=== PATIENT | female | born 1960 | race Caucasian/White ===

== ENCOUNTER 2019-08-02 10:01 | Observation (INO) | payer BC ==
[2019-08-02] MEDS ORDERED: ASPIRIN 81 MG PO STA (10:12)
[2019-08-02] MEDS ORDERED: NITROGLYCERIN OINT 1 INCH/GM PACKET TOPICAL STA (10:12)
--- NOTE | 2019-08-02 10:15 | ED ---
General Adult HPI - General Chief complaint: Chest Pain Stated complaint: chest pain Time Seen by Provider: 08/02/19 10:05 Source: EMS, RN notes reviewed, old records reviewed Mode of arrival: EMS Limitations: no limitations - History of Present Illness Initial comments: This is a 59-year-old female who presents emergency Department with no significant past medical. Patient states she had some chest pain on Thursday but she always has a little rib pain in one particular area and she thought that was it. But this morning 4:00 she woke up with chest pressure along the whole left side which was much different than her rib pain. Patient states that pain continues currently. Patient denies any shortness of breath or difficulty breathing. Patient denies any radiation of the pain. Patient denies any diaphoresis. Patient denies any nausea. Patient states she has no history of high blood pressure diabetes or high cholesterol. Patient denies any smoking. Patient did state she went and saw her primary medical care doctor yesterday and he didn't EKG and did not see anything acute either. Review of Systems ROS Statement: Those systems with pertinent positive or pertinent negative responses have been documented in the HPI. ROS Other: All systems not noted in ROS Statement are negative. 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 Patient is nontoxic and well- hydrated and is in mild distress. ENT: Neck is soft and supple. No significant lymphadenopathy is noted. Oropharynx is clear. Moist mucous membranes. Neck has full range of motion without eliciting any pain. EYES: The sclera were anicteric and conjunctiva were pink and moist. Extraocular movements were intact and pupils were equal round and reactive to light. Eyelids were unremarkable. PULMONARY: Unlabored respirations. Good breath sounds bilaterally. No audible rales rhonchi or wheezing was noted. CARDIOVASCULAR: There is a regular rate and rhythm without any murmurs gallops or rubs. ABDOMEN: Soft and nontender with normal bowel sounds. No palpable organomegaly was noted. There is no palpable pulsatile mass. SKIN: Skin is clear with no lesions or rashes and otherwise unremarkable. NEUROLOGIC: Patient is alert and oriented x3. Cranial nerves II through XII are grossly intact. Motor and sensory are also intact. Normal speech, volume and content. Symmetrical smile. MUSCULOSKELETAL: Normal extremities with adequate strength and full range of motion. No lower extremity swelling or edema. No calf tenderness. LYMPHATICS: No significant lymphadenopathy is noted PSYCHIATRIC: Normal psychiatric evaluation. Limitations: no limitations Course Vital Signs 08/02/19 08/02/19 08/02/19 10:05 10:12 10:30 Temperature 98.7 F Pulse Rate 82 80 Pulse Rate [ 82 Customer Advisor ] Respiratory 18 15 Rate Blood Pressure 156/87 156/87 O2 Sat by Pulse 99 96 Oximetry Medical Decision Making - Medical Decision Making EKG shows normal sinus rhythm at 76 bpm UT interval 140 QRS is 82 QT interval 390 QTC is 438. Patient's EKG shows no ST segment elevation or depression. Chest x-ray shows no acute normalities. I went back into the room to reevaluate the patient she stated the pain went away for a short time after she had the Nitropaste but the pain is now returned. I spoke with Dr. Maradiaga and Dr. Schuster admit the patient admitted the patient wrote admitting orders I consulted cardiology I placed the patient on heparin. I continued heparin and aspirin Nitropaste on the floor. - Lab Data Result diagrams: 08/02/19 10:25 08/02/19 10:25 Lab Results 08/02/19 08/02/19 08/02/19 Range/Units 10:25 10:25 10:25 WBC 6.6 (3.8-10.6) k/uL RBC 4.65 (3.80-5.40) m/uL Hgb 14.4 (11.4-16.0) gm/dL Hct 42.8 (34.0-46.0) % MCV 92.0 (80.0-100.0) fL MCH 31.0 (25.0-35.0) pg MCHC 33.7 (31.0-37.0) g/dL RDW 12.6 (11.5-15.5) % Plt Count 346 (150-450) k/uL Neutrophils % 79 % Lymphocytes % 14 % Monocytes % 5 % Eosinophils % 0 % Basophils % 0 % Neutrophils # 5.2 (1.3-7.7) k/uL Lymphocytes # 0.9 L (1.0-4.8) k/uL Monocytes # 0.3 (0-1.0) k/uL Eosinophils # 0.0 (0-0.7) k/uL Basophils # 0.0 (0-0.2) k/uL Sodium 139 (137-145) mmol/L Potassium 4.2 (3.5-5.1) mmol/L Chloride 109 H (98-107) mmol/L Carbon Dioxide 22 (22-30) mmol/L Anion Gap 8 mmol/L BUN 13 (7-17) mg/dL Creatinine 0.60 (0.52-1.04) mg/dL Est GFR (CKD-EPI)AfAm >90 (>60 ml/min/1.73 sqM) Est GFR (CKD-EPI)NonAf >90 (>60 ml/min/1.73 sqM) Glucose 114 H (74-99) mg/dL Calcium 9.3 (8.4-10.2) mg/dL Magnesium 2.0 (1.6-2.3) mg/dL Total Bilirubin 0.5 (0.2-1.3) mg/dL AST 29 (14-36) U/L ALT 8 L (9-52) U/L Alkaline Phosphatase 73 (38-126) U/L Troponin I <0.012 (0.000-0.034) ng/mL Total Protein 7.5 (6.3-8.2) g/dL Albumin 4.5 (3.5-5.0) g/dL Critical Care Time Critical Care Time: Yes Total Critical Care Time: 35 Disposition Clinical Impression: Unstable angina pectoris Disposition: ADMITTED IP TO THIS HOSP Referrals: Annelise Dietrich DO [Primary Care Provider] - 1-2 days Time of Disposition: 12:11
--- NOTE | 2019-08-02 10:42 | XR ---
EXAMINATION TYPE: XR chest 2V DATE OF EXAM: 08/02/2019 COMPARISON: NONE HISTORY: Shortness of breath TECHNIQUE: Frontal and lateral views of the chest are obtained. FINDINGS: Scattered senescent parenchymal changes noted. No evidence for infiltrate. No evidence for atelectasis. Heart size is stable. Mediastinal structures are stable and grossly unremarkable. No evidence for hilar prominence. Degenerative changes dorsal spine. IMPRESSION: 1. No evidence for acute pulmonary disease.
[2019-08-02 11:02] LABS: Basophils % (A) 0 %; Eosinophils % (A) 0 %; HCT 42.8 % (34.0-46.0); HGB 14.4 gm/dL (11.4-16.0); Lymphocytes # (A) 0.9 k/uL (1.0-4.8); Lymphocytes % (A) 14 %; MCHC 33.7 g/dL (31.0-37.0); Mean Platelet Volume 5.9; Monocytes # (A) 0.3 k/uL (0-1.0); Monocytes % (A) 5 %; Neutrophils # (A) 5.2 k/uL (1.3-7.7); Neutrophils % (A) 79 %; Platelet Count 346 k/uL (150-450); RBC 4.65 m/uL (3.80-5.40); RDW 12.6 % (11.5-15.5); WBC 6.6 k/uL (3.8-10.6)
[2019-08-02 11:13] LABS: INR 0.9 (<1.2); Partial Thromboplastin Time 28.1 sec (22.0-30.0); Prothrombin Time 10.1 sec (9.0-12.0)
[2019-08-02 11:20] LABS: ALT 8 U/L (9-52); AST 29 U/L (14-36); African American GFR (CKD) >90 (>60 ml/min/1.73 sqM); Albumin 4.5 g/dL (3.5-5.0); Alkaline Phosphatase 73 U/L (38-126); Anion Gap 8 mmol/L; Blood Urea Nitrogen 13 mg/dL (7-17); Calcium 9.3 mg/dL (8.4-10.2); Carbon Dioxide 22 mmol/L (22-30); Chloride 109 mmol/L (98-107); Glucose 114 mg/dL (74-99); Non-African American GFR(CKD) >90 (>60 ml/min/1.73 sqM); Potassium 4.2 mmol/L (3.5-5.1); Sodium 139 mmol/L (137-145); Total Bilirubin 0.5 mg/dL (0.2-1.3); Total Protein 7.5 g/dL (6.3-8.2)
[2019-08-02] MEDS ORDERED: HEPARIN SODIUM,PORCINE 5,000 UNIT/ML 1 ML VIAL IV ONE (12:08)
[2019-08-02] MEDS ORDERED: NITROGLYCERIN SL TABS 0.4 MG TAB SUBLINGUAL PRN (12:11)
[2019-08-02] MEDS ORDERED: HEPARIN SOD,PORK IN 0.45% NACL 25,000 UNIT in 0.45% NACL 1 250ML.BAG IV SCH (12:15)
[2019-08-02 15:12] VITALS: RESP 18
[2019-08-02] MEDS ORDERED: ESTRADIOL 0.1 MG/GM VAGINAL CREAM 42.5 GM TUBE VAGINAL PRN (16:05)
[2019-08-02] MEDS: ACETAMINOPHEN TAB 325 MG TAB PO PRN ×2 (16:08→21:04)
--- NOTE | 2019-08-02 16:08 | P.HPIM ---
History of Present Illness Patient is a pleasant 59-year-old female came in with compensative chest pressure like sensation which started today morning patient and her episode on Thursday morning on and off chest pain mild pressure-like in the retrosternal area radiating to the left side also radiates to the back. Patient denied any cough chest x-ray did not show any pneumonic process. Patient normally has a the pain which he this pain is different from her regularly. Denied any shortness of breath diaphoresis nausea chest pain not related to food. Patient denied any family history of premature coronary artery disease EKG showed some PVCs that any significant acute ST-T wave changes troponin is negative. Review of Systems REVIEW OF SYSTEMS: CONSTITUTIONAL: No fever, no malaise, no fatigue. HEENT: No recent visual problems or hearing problems. Denied any sore throat. CARDIOVASCULAR: No orthopnea, PND, no palpitations, no syncope. PULMONARY: No shortness of breath, no cough, no hemoptysis. GASTROINTESTINAL: No diarrhea, no nausea, no vomiting, no abdominal pain. NEUROLOGICAL: No headaches, no weakness, no numbness. HEMATOLOGICAL: Denies any bleeding or petechiae. GENITOURINARY: Denies any burning micturition, frequency, or urgency. MUSCULOSKELETAL/RHEUMATOLOGICAL: Denies any joint pain, swelling, or any muscle pain. ENDOCRINE: Denies any polyuria or polydipsia. The rest of the 14-point review of systems is negative. 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 History of Any Multi-Drug Resistant Organisms: None Reported Past Surgical History: Tonsillectomy Past Psychological History: No Psychological Hx Reported Smoking Status: Never smoker Past Alcohol Use History: Occasional Past Drug Use History: None Reported Medications and Allergies Home Medications Medication Instructions Recorded Confirmed Type Aspirin EC [Ecotrin] 325 mg PO DAILY PRN 08/02/19 08/02/19 History Estradiol Cream [Estrace Cream 1 gm VAGINAL DIRECTED PRN 08/02/19 08/02/19 History 0.01%] Ibuprofen [Motrin Ib] 600 mg PO Q6H PRN 08/02/19 08/02/19 History Thyroid,Pork [[place] Thyroid] 15 mg PO DAILY 08/02/19 08/02/19 History Thyroid,Pork [[place] Thyroid] 90 mg PO DAILY 08/02/19 08/02/19 History Allergies Allergy/AdvReac Type Severity Reaction Status Date / Time Penicillins Allergy Unknown Verified 08/02/19 12:38 Physical Exam Vitals: Vital Signs Temp Pulse Pulse Resp BP Pulse Ox 08/02/19 15:00 68 18 117/71 08/02/19 14:30 76 18 116/79 08/02/19 14:00 69 17 120/73 98 08/02/19 13:30 73 19 127/74 08/02/19 12:41 98.8 F 68 18 135/75 97 08/02/19 12:30 74 17 125/72 08/02/19 12:00 76 18 128/77 08/02/19 11:30 75 18 151/90 08/02/19 10:30 80 15 156/87 96 08/02/19 10:12 82 08/02/19 10:05 98.7 F 82 18 156/87 99 Intake and Output 08/02/19 08/02/19 08/02/19 06:59 14:59 22:59 Other: Weight 76.204 kg PHYSICAL EXAMINATION: GENERAL: The patient is alert and oriented x3, not in any acute distress. Well developed, well nourished. HEENT: Pupils are round and equally reacting to light. EOMI. No scleral icterus. No conjunctival pallor. Normocephalic, atraumatic. No pharyngeal erythema. No thyromegaly. CARDIOVASCULAR: S1 and S2 present. No murmurs, rubs, or gallops. PULMONARY: Chest is clear to auscultation, no wheezing or crackles. ABDOMEN: Soft, nontender, nondistended, normoactive bowel sounds. No palpable organomegaly. MUSCULOSKELETAL: No joint swelling or deformity. EXTREMITIES: No cyanosis, clubbing, or pedal edema. NEUROLOGICAL: Gross neurological examination did not reveal any focal deficits. SKIN: No rashes. Results CBC & Chem 7: 08/02/19 10:25 08/02/19 10:25 Labs: Abnormal Lab Results - Last 24 Hours (Table) 08/02/19 08/02/19 Range/Units 10:25 10:25 Lymphocytes # 0.9 L (1.0-4.8) k/uL Chloride 109 H (98-107) mmol/L Glucose 114 H (74-99) mg/dL ALT 8 L (9-52) U/L Assessment and Plan Plan: Chest pain: We will rule out acute coronary syndromes of dental more sets of troponins and EKGs patient appears to have atypical chest pain probably musculoskeletal in nature cardiology will evaluate the patient and stress test as per cardiology. -Hyperlipidemia -Hypothyroidism: Patient will be resumed on her home medications
[2019-08-02] MEDS: NITROGLYCERIN OINT 1 INCH/GM PACKET TOPICAL SCH ×2 (18:02→23:30)
[2019-08-03 02:07] LABS: Cholesterol 295 mg/dL (<200); HDL Cholesterol 74 mg/dL (40-60); LDL Cholesterol,Calculated 199 mg/dL (0-99); Triglycerides 108 mg/dL (<150)
[2019-08-03] MEDS: NITROGLYCERIN OINT 1 INCH/GM PACKET TOPICAL SCH (06:29)
[2019-08-03] MEDS ORDERED: THYROID, PORK 30 MG TAB PO SCH (09:00)
[2019-08-03] MEDS ORDERED: ASPIRIN 325 MG TAB PO SCH (09:00)
[2019-08-03] MEDS ORDERED: ASPIRIN 81 MG PO SCH (09:00)
[2019-08-03] MEDS ORDERED: THYROID PORK 15 MG PO SCH (09:00)
--- NOTE | 2019-08-03 10:31 | ECHOF ---
Referral Reason:cp MEASUREMENTS -------- HEIGHT: 157.5 cm WEIGHT: 76.2 kg BP: RVIDd: 3.3 cm (< 3.3) IVSd: 1.1 cm (0.6 - 1.1) LVIDd: 4.8 cm (3.9 - 5.3) LVPWd: 1.3 cm (0.6 - 1.1) IVSs: 1.5 cm LVIDs: 3.5 cm LVPWs: 1.8 cm LA Diam: 3.7 cm (2.7 - 3.8) LAESV Index (A-L): 25.30 ml/m Ao Diam: 3.2 cm (2.0 - 3.7) AV Cusp: 1.4 cm (1.5 - 2.6) LA Diam: 4.1 cm (2.7 - 3.8) MV EXCURSION: 22.213 mm (> 18.000) MV EF SLOPE: 114 mm/s (70 - 150) EPSS: 0.2 cm MV E [place]: 0.59 m/s MV DecT: 90 ms MV A [place]: 0.94 m/s MV E/A Ratio: 0.62 RAP: 5.00 mmHg RVSP: 25.15 mmHg FINDINGS -------- Sinus rhythm. This was a technically good study. LV size, wall thickness and systolic function are normal, with an EF greater than 55%. The left dante tricular size is normal. The diastolic filling pattern is normal for the age of the patient 10.17. The right ventricle is normal in size. The left atrial size is normal. Normal LA size by volume 22+/-6 ml/m2. The right atrial size is normal. The aortic valve is trileaflet, and appears structurally normal. No aortic stenosis or regurgitation. Mild mitral annular calcification present. Mild mitral regurgitation is present. Mild tricuspid regurgitation present. Right ventricular systolic pressure is normal at < 35 mmHg. There is no evidence of pulmonary hypertension. There is no pulmonic regurgitation present. The aortic root size is normal. There is no pericardial effusion. CONCLUSIONS -------- 1. Sinus rhythm. 2. This was a technically good study. 3. LV size, wall thickness and systolic function are normal, with an EF greater than 55%. 4. The left ventricular size is normal. 5. The diastolic filling pattern is normal for the age of the patient 10.17 6. The right ventricle is normal in size. 7. The left atrial size is normal. 8. Normal LA size by volume 22+/-6 ml/m2. 9. The right atrial size is normal. 10. The aortic valve is trileaflet, and appears structurally normal. No aortic stenosis or regurgitat ion. 11. Mild mitral annular calcification present. 12. Mild mitral regurgitation is present. 13. Mild tricuspid regurgitation present. 14. Right ventricular systolic pressure is normal at < 35 mmHg. 15. There is no evidence of pulmonary hypertension. 16. There is no pulmonic regurgitation present. 17. The aortic root size is normal. 18. There is no pericardial effusion. OVERHAULER HELPER: Jennifer Miguel RDCS
--- NOTE | 2019-08-03 10:43 | P.CRDCN ---
History of Present Illness History of present illness: HISTORY OF PRESENTING ILLNESS This is a pleasant 59-year-old female past medical history significant for Graves' disease and hyperlipidemia. She presented with chest pain. She do es not follow in the office with a clinical support manager. We have been asked to see him in consultation for chest pain. She states for the previous 3 days she has been experiencing a knot sensation in the left precordial region. She denies any significant pain or discomfort only that she feels a "sensation". It is not associated with dizziness, shortness of breath, dizziness or palpitations. There is no radiation to arm, back, neck or jaw. There is no specific aggravating or alleviating factors. Pain is not respirophasic or reproducible on palpation. DIAGNOSTICS EKG reveals sinus mechanism with no acute ST or T-wave abnormalities. Chest xray evident for an acute cardiopulmonary process. Laboratory reviewed, CBC unremarkable, sodium 139, potassium 4.2, creatinine 0.6, cardiac enzymes negative 3, LDL 199, total cholesterol 295, HDL 74. She takes no daily cardiac medications. REVIEW OF SYSTEMS At the time of my exam: CONSTITUTIONAL: Denies fever or chills. CARDIOVASCULAR: Denies chest pain, shortness of breath, orthopnea, PND or palpitations. RESPIRATORY: Denies cough. GASTROINTESTINAL: Denies abdominal pain, diarrhea, constipation, nausea or vomiting. MUSCULOSKELETAL: Denies myalgias. NEUROLOGIC: Denies numbness, tingling or weakness. ENDOCRINE: Denies fatigue, weight change, polydipsia or polyurina. GENITOURINARY: Denies burning, hematuria or urgency with micturation. HEMATOLOGIC: Denies history of anemia or bleeding. PHYSICAL EXAMINATION Blood pressure 161/91 heart rate 69 afebrile and maintaining oxygen saturaiton on room air. CONSTITUTIONAL: No apparent distress. HEENT: Head is normocephalic. Pupils are equal, round. Sclerae anicteric. Mucous membranes of the mouth are moist. No JVD. No carotid bruit. CHEST EXAMINATION: Lungs are clear to auscultation. No chest wall tenderness is noted on palpation or with deep breathing. HEART EXAMINATION: Regular rate and rhythm. S1, S2 heard. No murmurs, gallops or rub. ABDOMEN: Soft, nontender. Positive bowel sounds. EXTREMITIES: 2+ peripheral pulses, no lower extremity edema and no calf tenderness. NEUROLOGIC EXAMINATION: Patient is awake, alert and oriented x3. ASSESSMENT Chest pain, atypical. An acute coronary event has been ruled out. Dyslipidemia, likely familial PLAN An acute coronary event has been ruled out. Obtain 2D echocardiogram and doppler study to assess cardiac structure and function. Perform stress echocardiogram to assess for stress induced ischemia. Lengthy discussion with the patient regarding initiation of statins. She states she has discussed this with her PCP and is going to try diet, exercise and Red Yeast Rice for 3 months. Advised her that this alone will not be enough to lower her LDL. Also advised that her blood pressures are fluctuating on the high side more than normal and would recommend anti-hypertensive. She will follow this closely as an outpatient. If stress test is normal she may be discharged from a cardiac perspective. Thank you kindly for this consultation. Nurse Practitioner note has been reviewed, I agree with a documented findings and plan of care. Patient was seen and examined. 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 History of Any Multi-Drug Resistant Organisms: None Reported Past Surgical History: Tonsillectomy Past Anesthesia/Blood Transfusion Reactions: No Reported Reaction Past Psychological History: No Psychological Hx Reported Smoking Status: Never smoker Past Alcohol Use History: Occasional Past Drug Use History: None Reported Medications and Allergies Home Medications Medication Instructions Recorded Confirmed Type Aspirin EC [Ecotrin] 325 mg PO DAILY PRN 08/02/19 08/02/19 History Estradiol Cream [Estrace Cream 1 gm VAGINAL DIRECTED PRN 08/02/19 08/02/19 History 0.01%] Ibuprofen [Motrin Ib] 600 mg PO Q6H PRN 08/02/19 08/02/19 History Thyroid,Pork [[place] Thyroid] 15 mg PO DAILY 08/02/19 08/02/19 History Thyroid,Pork [[place] Thyroid] 90 mg PO DAILY 08/02/19 08/02/19 History Allergies Allergy/AdvReac Type Severity Reaction Status Date / Time Penicillins Allergy Unknown Verified 08/02/19 12:38 Physical Exam Vitals: Vital Signs Temp Pulse Pulse Pulse Resp BP BP 08/03/19 07:30 98.3 F 69 18 161/91 08/03/19 03:56 98 F 69 18 136/71 08/03/19 03:12 18 08/02/19 23:59 97.7 F 66 18 121/68 08/02/19 23:09 18 08/02/19 20:00 18 08/02/19 19:06 98.2 F 57 L 18 128/72 08/02/19 16:24 97.8 F 68 18 159/74 08/02/19 16:09 97.9 F 08/02/19 16:00 62 18 119/69 08/02/19 15:30 82 19 120/70 08/02/19 15:00 68 18 117/71 08/02/19 14:30 76 18 116/79 08/02/19 14:00 69 17 120/73 08/02/19 13:30 73 19 127/74 08/02/19 12:41 98.8 F 68 18 135/75 08/02/19 12:30 74 17 125/72 08/02/19 12:00 76 18 128/77 08/02/19 11:30 75 18 151/90 08/02/19 10:30 80 15 156/87 08/02/19 10:12 82 08/02/19 10:05 98.7 F 82 18 156/87 Pulse Ox 08/03/19 07:30 95 08/03/19 03:56 98 08/03/19 03:12 08/02/19 23:59 97 08/02/19 23:09 08/02/19 20:00 08/02/19 19:06 97 08/02/19 16:24 97 08/02/19 16:09 08/02/19 16:00 08/02/19 15:30 08/02/19 15:00 08/02/19 14:30 08/02/19 14:00 98 08/02/19 13:30 08/02/19 12:41 97 08/02/19 12:30 08/02/19 12:00 08/02/19 11:30 08/02/19 10:30 96 08/02/19 10:12 08/02/19 10:05 99 Intake and Output 08/02/19 08/03/19 08/03/19 22:59 06:59 14:59 Other: # Voids 1 Weight 76.204 kg Results 08/02/19 10:25 08/02/19 10:25 Cardiac Enzymes 08/02/19 08/02/19 08/02/19 Range/Units 10:25 10:25 16:17 AST 29 (14-36) U/L Troponin I <0.012 <0.012 (0.000-0.034) ng/mL 08/02/19 Range/Units 22:32 AST (14-36) U/L Troponin I <0.012 (0.000-0.034) ng/mL Coagulation 08/02/19 08/02/19 Range/Units 10:25 22:32 PT 10.1 (9.0-12.0) sec APTT 28.1 64.9 H (22.0-30.0) sec Lipids 08/02/19 Range/Units 10:25 Triglycerides 108 (<150) mg/dL Cholesterol 295 H (<200) mg/dL HDL Cholesterol 74 H (40-60) mg/dL CBC 08/02/19 Range/Units 10:25 WBC 6.6 (3.8-10.6) k/uL RBC 4.65 (3.80-5.40) m/uL Hgb 14.4 (11.4-16.0) gm/dL Hct 42.8 (34.0-46.0) % Plt Count 346 (150-450) k/uL Comprehensive Metabolic Panel 08/02/19 Range/Units 10:25 Sodium 139 (137-145) mmol/L Potassium 4.2 (3.5-5.1) mmol/L Chloride 109 H (98-107) mmol/L Carbon Dioxide 22 (22-30) mmol/L BUN 13 (7-17) mg/dL Creatinine 0.60 (0.52-1.04) mg/dL Glucose 114 H (74-99) mg/dL Calcium 9.3 (8.4-10.2) mg/dL AST 29 (14-36) U/L ALT 8 L (9-52) U/L Alkaline Phosphatase 73 (38-126) U/L Total Protein 7.5 (6.3-8.2) g/dL Albumin 4.5 (3.5-5.0) g/dL Current Medications Generic Name Dose Route Start Last Admin Trade Name Freq PRN Reason Stop Dose Admin Acetaminophen 650 mg 08/02/19 15:57 08/02/19 21:04 Tylenol Tab PO 650 mg Q6HR PRN Administration Fever and/ or Mild Pain Aspirin 81 mg 08/03/19 09:00 Aspirin PO DAILY SHRUTI Estradiol 1 applic 08/02/19 16:05 Estrace Cream VAGINAL DIRECTED PRN Vaginal Dryness Nitroglycerin 0.4 mg 08/02/19 12:11 Nitrostat SUBLINGUAL Q5M PRN Chest Pain Thyroid 105 mg 08/03/19 09:00 [place] Thyroid PO DAILY SHRUTI Intake and Output 08/02/19 08/03/19 08/03/19 22:59 06:59 14:59 Other: # Voids 1 Weight 76.204 kg 08/02/19 10:25 08/02/19 10:25
[2019-08-03 11:12] VITALS: BP 137/93; PULSE 80; TEMP 98
--- NOTE | 2019-08-03 12:16 | ECHOS ---
STRESS ECHOCARDIOGRAM DATE OF SERVICE: 08/03/2019 INDICATIONS: Chest pain. MEDICATIONS: BASELINE HEART RATE: 68 BASELINE BLOOD PRESSURE: 150/91 MAXIMUM HEART RATE: 148 MAXIMUM BLOOD PRESSURE: 182/74 85% MPHR: 139 100% MPHR: 160 METS: 12 MAXIMUM STAGE REACHED: IV TOTAL EXERCISE TIME: 11 minutes CLINICAL INFORMATION: Baseline EKG shows sinus rhythm, normal axis, normal intervals. Patient exercised on Liu protocol for a total of 11 minute achieving 12 METs, 91% of predicted maximal heart rate without chest pain. Frequent PVCs were noted throughout the study. Baseline echo shows normal left ventricular size, wall motion and systolic function. Postexercise, there is normal hyperdynamic response of all segments of myocardium noted. CONCLUSIONS: 1. Excellent exercise tolerance. 2. Inconclusive EKG part of the stress test due to artifact and cardiac arrhythmia. Frequent PVCs throughout the study. 3. Negative stress echo. MMODL / IJN: [id number] /
--- NOTE | 2019-08-03 13:49 | P.DS ---
Providers Date of admission: 08/02/19 12:43 Attending physician: Mo Maradiaga Consults: 08/02/19 12:11 Consult Physician Urgent Consulting Provider: [facility] Consult Reason/Comments: Unstable angina Do you want consulting provider notified?: Yes Primary care physician: Annelise Dietrich [facility] Course: Patient is a pleasant 59-year-old female came in with compensative chest pressure like sensation which started today morning patient and her episode on Thursday morning on and off chest pain mild pressure-like in the retrosternal area radiating to the left side also radiates to the back. Patient denied any cough chest x-ray did not show any pneumonic process. Patient normally has a the pain which he this pain is different from her regularly. Denied any shortness of breath diaphoresis nausea chest pain not related to food. Patient denied any family history of premature coronary artery disease EKG showed some PVCs that any significant acute ST-T wave changes troponin is negative. 08/03/2019 Patient's ascitic, negative for any inducible ischemia patient will be discharged today. PHYSICAL EXAMINATION: GENERAL: The patient is alert and oriented x3, not in any acute distress. Well developed, well nourished. HEENT: Pupils are round and equally reacting to light. EOMI. No scleral icterus. No conjunctival pallor. Normocephalic, atraumatic. No pharyngeal erythema. No thyromegaly. CARDIOVASCULAR: S1 and S2 present. No murmurs, rubs, or gallops. PULMONARY: Chest is clear to auscultation, no wheezing or crackles. ABDOMEN: Soft, nontender, nondistended, normoactive bowel sounds. No palpable organomegaly. MUSCULOSKELETAL: No joint swelling or deformity. EXTREMITIES: No cyanosis, clubbing, or pedal edema. NEUROLOGICAL: Gross neurological examination did not reveal any focal deficits. SKIN: No rashes. The rest of the medical problems are present post please refer to my HPI from yesterday Plan - Discharge Summary Discharge Rx Participant: No New Discharge Prescriptions: No Action Estradiol Cream [Estrace Cream 0.01%] 1 gm VAGINAL DIRECTED PRN PRN Reason: Vaginal Dryness Aspirin EC [Ecotrin] 325 mg PO DAILY PRN PRN Reason: Pain Thyroid,Pork [[place] Thyroid] 90 mg PO DAILY Thyroid,Pork [[place] Thyroid] 15 mg PO DAILY Ibuprofen [Motrin Ib] 600 mg PO Q6H PRN PRN Reason: Pain Discharge Medication List Aspirin EC [Ecotrin] 325 mg PO DAILY PRN 08/02/19 [History] Estradiol Cream [Estrace Cream 0.01%] 1 gm VAGINAL DIRECTED PRN 08/02/19 [History] Ibuprofen [Motrin Ib] 600 mg PO Q6H PRN 08/02/19 [History] Thyroid,Pork [[place] Thyroid] 15 mg PO DAILY 08/02/19 [History] Thyroid,Pork [[place] Thyroid] 90 mg PO DAILY 08/02/19 [History] Follow up Appointment(s)/Referral(s): Annelise Dietrich DO [Primary Care Provider] - 3 Days Thom Garrido MD [STAFF PHYSICIAN] - 08/24/19 1:15 pm Discharge Disposition: HOME SELF-CARE
== END 2019-08-03 14:44 | disposition home or self-care (01) ==
LOC: EC 10:01 → 1SOBS 12:43
PROVIDERS: ADMIT Hospitalist; ATTEND Hospitalist
DX: R07.9 Chest pain, unspecified (principal); E78.5 Hyperlipidemia, unspecified; E03.9 Hypothyroidism, unspecified; I49.3 Ventricular premature depolarization; R94.31 Abnormal electrocardiogram [ECG] [EKG]; Z86.39 Personal history of other endocrine, nutritional and metabolic disease; Z79.890 Hormone replacement therapy; Z90.89 Acquired absence of other organs; Z88.0 Allergy status to penicillin
CPT/HCPCS: 93005 ×2; 96366 ×3; 96376; 96365; 99291; 36415; 93306; 93351; 80061; 80053; 83735; 84484; 85025; 85610; 85730; 71046; G0378 ×2; J1644 ×2

== ENCOUNTER 2022-01-15 12:21 | Emergency (ER) | payer BC ==
[2022-01-15 12:26] VITALS: RESP 18
[2022-01-15 12:27] VITALS: PULSE 80
[2022-01-15] MEDS ORDERED: SODIUM CHLORIDE 0.9% 500 ML 500 ML IV STA (12:46)
[2022-01-15 12:54] VITALS: TEMP 99.2
--- NOTE | 2022-01-15 12:58 | ED ---
General Adult HPI - General Chief complaint: Recheck/Abnormal Lab/Rx Stated complaint: High BP Time Seen by Provider: 01/15/22 12:25 Source: patient, EMS, RN notes reviewed, old records reviewed Mode of arrival: EMS - History of Present Illness Initial comments: This is a 61-year-old female who states she just wasn't feeling right. She noticed her pulse was up in the 120s and her blood pressure was high. She went to see her primary medical care doctor and he continued there so they sent to the emergency department. Patient denies any difficulty breathing shortness of breath. Patient denies any fever chills. Patient states she did not get the COVID vaccine. Patient denies any abdominal pain patient denies any recent nausea vomiting. Patient denies any risk factors for pulmonary embolism. Patient denies any swelling to the legs or calf tenderness. Patient denies being dehydrated. Patient states her blood pressures come down now but she still doesn't feel quite right. - Related Data Home Medications Medication Instructions Recorded Confirmed Aspirin EC [Ecotrin] 325 mg PO DAILY PRN 08/02/19 08/02/19 Estradiol Cream [Estrace Cream 1 gm VAGINAL DIRECTED PRN 08/02/19 08/02/19 0.01%] Ibuprofen [Motrin Ib] 600 mg PO Q6H PRN 08/02/19 08/02/19 Thyroid,Pork [Miracle Thyroid] 15 mg PO DAILY 08/02/19 08/02/19 Thyroid,Pork [Miracle Thyroid] 90 mg PO DAILY 08/02/19 08/02/19 Allergies Allergy/AdvReac Type Severity Reaction Status Date / Time Penicillins Allergy Unknown Verified 01/15/22 12:27 Review of Systems ROS Statement: Those systems with pertinent positive or pertinent negative responses have been documented in the HPI. ROS Other: All systems not noted in ROS Statement are negative. 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 Patient is nontoxic and well- hydrated and is in mild distress. ENT: Neck is soft and supple. No significant lymphadenopathy is noted. Oropharynx is clear. Moist mucous membranes. Neck has full range of motion without eliciting any pain. EYES: The sclera were anicteric and conjunctiva were pink and moist. Extraocular movements were intact and pupils were equal round and reactive to light. Eyelids were unremarkable. PULMONARY: Unlabored respirations. Good breath sounds bilaterally. No audible rales rhonchi or wheezing was noted. CARDIOVASCULAR: There is a regular rate and rhythm without any murmurs gallops or rubs. Patient's heart rate was 89 beats a minute ABDOMEN: Soft and nontender with normal bowel sounds. SKIN: Skin is clear with no lesions or rashes and otherwise unremarkable. NEUROLOGIC: Patient is alert and oriented x3. Cranial nerves II through XII are grossly intact. Motor and sensory are also intact. Normal speech, volume and content. Symmetrical smile. MUSCULOSKELETAL: Normal extremities with adequate strength and full range of motion. LYMPHATICS: No significant lymphadenopathy is noted PSYCHIATRIC: Normal psychiatric evaluation. Course Vital Signs 01/15/22 01/15/22 01/15/22 12:22 12:26 12:27 Temperature 99.2 F Pulse Rate 87 Pulse Rate [ 80 Pulse Oximetery ] Respiratory 18 Rate Blood Pressure 173/101 175/99 O2 Sat by Pulse 95 Oximetry Medical Decision Making - Medical Decision Making EKG shows sinus rhythm at 83 bpm IN interval 252 QRS is 97 QT interval 370 QTC is 410. Patient's EKG shows no ST segment elevation or depression. Chest x-ray shows no acute abnormality. Patient was able to ambulate around the emergency department and heart rate st ayed in the 90s and as the patient relax her blood pressure came down into normal range in her heart rate was in the 80s. At this point time all symptoms have resolved. - Lab Data Result diagrams: 01/15/22 13:01/15/22 13: Lab Results 01/15/22 01/15/22 01/15/22 Range/Units 13: 13: 13: WBC 8.3 (3.8-10.6) k/uL RBC 4.78 (3.80-5.40) m/uL Hgb 14.5 (11.4-16.0) gm/dL Hct 44.4 (34.0-46.0) % MCV 92.9 (80.0-100.0) fL MCH 30.4 (25.0-35.0) pg MCHC 32.7 (31.0-37.0) g/dL RDW 13.3 (11.5-15.5) % Plt Count 368 (150-450) k/uL MPV 6.4 Neutrophils % 85 % Lymphocytes % 10 % Monocytes % 3 % Eosinophils % 0 % Basophils % 0 % Neutrophils # 7.1 (1.3-7.7) k/uL Lymphocytes # 0.8 L (1.0-4.8) k/uL Monocytes # 0.3 (0-1.0) k/uL Eosinophils # 0.0 (0-0.7) k/uL Basophils # 0.0 (0-0.2) k/uL D-Dimer (<0.60) mg/L FEU Sodium 138 (137-145) mmol/L Potassium 4.6 (3.5-5.1) mmol/L Chloride 106 (98-107) mmol/L Carbon Dioxide 22 (22-30) mmol/L Anion Gap 10 mmol/L BUN 19 H (7-17) mg/dL Creatinine 0.65 (0.52-1.04) mg/dL Est GFR (CKD-EPI)AfAm >90 (>60 ml/min/1.73 sqM) Est GFR (CKD-EPI)NonAf >90 (>60 ml/min/1.73 sqM) Glucose 102 H (74-99) mg/dL Calcium 9.7 (8.4-10.2) mg/dL Magnesium 1.9 (1.6-2.3) mg/dL Total Bilirubin 0.7 (0.2-1.3) mg/dL AST 32 (14-36) U/L ALT 12 (4-34) U/L Alkaline Phosphatase 99 (38-126) U/L Troponin I <0.012 (0.000-0.034) ng/mL Total Protein 8.1 (6.3-8.2) g/dL Albumin 4.6 (3.5-5.0) g/dL TSH 0.132 L (0.465-4.680) mIU/L Free T4 1.02 (0.78-2.19) ng/dL Coronavirus (PCR) (Not Detectd) 01/15/22 01/15/22 Range/Units 13:01 14:01 WBC (3.8-10.6) k/uL RBC (3.80-5.40) m/uL Hgb (11.4-16.0) gm/dL Hct (34.0-46.0) % MCV (80.0-100.0) fL MCH (25.0-35.0) pg MCHC (31.0-37.0) g/dL RDW (11.5-15.5) % Plt Count (150-450) k/uL MPV Neutrophils % % Lymphocytes % % Monocytes % % Eosinophils % % Basophils % % Neutrophils # (1.3-7.7) k/uL Lymphocytes # (1.0-4.8) k/uL Monocytes # (0-1.0) k/uL Eosinophils # (0-0.7) k/uL Basophils # (0-0.2) k/uL D-Dimer 0.23 (<0.60) mg/L FEU Sodium (137-145) mmol/L Potassium (3.5-5.1) mmol/L Chloride (98-107) mmol/L Carbon Dioxide (22-30) mmol/L Anion Gap mmol/L BUN (7-17) mg/dL Creatinine (0.52-1.04) mg/dL Est GFR (CKD-EPI)AfAm (>60 ml/min/1.73 sqM) Est GFR (CKD-EPI)NonAf (>60 ml/min/1.73 sqM) Glucose (74-99) mg/dL Calcium (8.4-10.2) mg/dL Magnesium (1.6-2.3) mg/dL Total Bilirubin (0.2-1.3) mg/dL AST (14-36) U/L ALT (4-34) U/L Alkaline Phosphatase (38-126) U/L Troponin I (0.000-0.034) ng/mL Total Protein (6.3-8.2) g/dL Albumin (3.5-5.0) g/dL TSH (0.465-4.680) mIU/L Free T4 (0.78-2.19) ng/dL Coronavirus (PCR) Not Detected (Not Detectd) Disposition Clinical Impression: Tachycardia with hypertension Disposition: HOME SELF-CARE Condition: Good Instructions (If sedation given, give patient instructions): Hypertension (ED), Tachycardia (ED) Is patient prescribed a controlled substance at d/c from ED?: No Referrals: Annelise Dietrich DO [Primary Care Provider] - 1-2 days Time of Disposition: 14:42
[2022-01-15 13:25] LABS: Basophils % (A) 0 %; Eosinophils % (A) 0 %; HCT 44.4 % (34.0-46.0); HGB 14.5 gm/dL (11.4-16.0); Lymphocytes # (A) 0.8 k/uL (1.0-4.8); Lymphocytes % (A) 10 %; MCH 30.4 pg (25.0-35.0); MCHC 32.7 g/dL (31.0-37.0); MCV 92.9 fL (80.0-100.0); Mean Platelet Volume 6.4; Monocytes # (A) 0.3 k/uL (0-1.0); Monocytes % (A) 3 %; Neutrophils # (A) 7.1 k/uL (1.3-7.7); Neutrophils % (A) 85 %; Platelet Count 368 k/uL (150-450); RBC 4.78 m/uL (3.80-5.40); RDW 13.3 % (11.5-15.5); WBC 8.3 k/uL (3.8-10.6)
[2022-01-15 13:28] LABS: ALT 12 U/L (4-34); AST 32 U/L (14-36); African American GFR (CKD) >90 (>60 ml/min/1.73 sqM); Albumin 4.6 g/dL (3.5-5.0); Alkaline Phosphatase 99 U/L (38-126); Anion Gap 10 mmol/L; Blood Urea Nitrogen 19 mg/dL (7-17); Calcium 9.7 mg/dL (8.4-10.2); Carbon Dioxide 22 mmol/L (22-30); Chloride 106 mmol/L (98-107); Glucose 102 mg/dL (74-99); Magnesium 1.9 mg/dL (1.6-2.3); Non-African American GFR(CKD) >90 (>60 ml/min/1.73 sqM); Potassium 4.6 mmol/L (3.5-5.1); Sodium 138 mmol/L (137-145); Total Bilirubin 0.7 mg/dL (0.2-1.3); Total Protein 8.1 g/dL (6.3-8.2)
--- NOTE | 2022-01-15 14:00 | XR ---
EXAMINATION TYPE: XR chest 2V DATE OF EXAM: 01/15/2022 COMPARISON: X-ray dated 08/02/2019 HISTORY: Chest pain TECHNIQUE: Frontal and lateral views of the chest are obtained. FINDINGS: Grossly unremarkable lungs. No pleural effusion or pneumothorax. No cardiomegaly. Aortic atherosclero tic calcifications. No gross aggressive bone lesion. IMPRESSION: No definite acute abnormality identified.
[2022-01-15 14:24] LABS: T4, Free (Free Thyroxine) 1.02 ng/dL (0.78-2.19)
[2022-01-15 14:57] VITALS: BP 124/69
== END 2022-01-15 14:57 | disposition home or self-care (01) ==
LOC: EC 12:21
DX: I10 Essential (primary) hypertension (principal); R00.0 Tachycardia, unspecified; Z88.0 Allergy status to penicillin
CPT/HCPCS: 36415; 71046; 80053; 83735; 84439; 84443; 84484; 85025; 85379; 87635; 93005

== ENCOUNTER → 2022-06-30 | Outpatient (CLI) | payer BC ==
--- NOTE | 2022-07-01 07:58 | CT ---
EXAMINATION TYPE: CT heart w calcium score DATE OF EXAM: 06/30/2022 COMPARISON: None HISTORY: Screening for cardiovascular disorder. 213.9 CT DLP: 51.9 mGycm Automated exposure control for dose reduction was used. CT CALCIUM SCORING Coronary calcium is a marker for plaque (fatty deposits) in a blood vessel or atherosclerosis (harden ing of the arteries). The presence and amount of calcium detected in a coronary artery by the CT sca n, indicates the presence and amount of atherosclerotic plaque. These calcium deposits appear years before the development of heart disease symptoms such as chest pain and shortness of breath. A calcium score is computed for each of the coronary arteries based upon the volume and density of th e calcium deposits. This can be referred to as your calcified plaque burden. It does not correspond directly to the percentage of narrowing in the artery but does correlate with the severity of the un derlying coronary atherosclerosis. PROCEDURE TECHNIQUE - Prospective Gating was used. Slice thickness: 3mm. Density threshold (HU): 130, Pixel threshold: 3, Algorithm: discrete. RESULTS Region: LM Calcium Score ([place]): 239.33 Volume (mm3): 212.15 Mass (g): 424.31 Region: RCA Calcium Score ([place]): 0 Volume (mm3): 0 Mass (g): 0 Region: LAD Calcium Score ([place]): 1.63 Volume (mm3): 2.73 Mass (g): 5.47 Region: CX Calcium Score ([place]): 0 Volume (mm3): 0 Mass (g): 0 Region: PDA Calcium Score ([place]): 0 Volume (mm3): 0 Mass (g): 0 Total: Calcium Score ([place]): 240.96 Volume (mm3): 214.89 Mass (g): 429.77 TOTAL CALCIUM SCORE: 240.96 IMPRESSION: Calcium Score: 101-400 Implication: Definite, at least moderate atherosclerotic plaque. Risk of Coronary Artery Disease: Mild coronary artery disease highly likely, significant narrowings p ossible CALCIUM SCORE IMPLICATION RISK OF C ORONARY ARTERY DISEASE 0 No identifiable plaque Very low, generally less than 5% 1-10 Minimal identifiable plaque Very unlikely, less than 10% 11-100 Definite, at least mild atherosclerotic plaque Mild or m inimal coronary narrowings likely 101-400 Definite, at least moderate atherosclerotic plaque Mild coronary ar nata disease highly likely, significant narrowing possible 401 or Higher Extensive atherosclerotic plaque High lik elihood of at least one significant coronary narrowing
== END | disposition home or self-care (01) ==
LOC: RADCTMAIN 15:35
PROVIDERS: ATTEND Family Medicine
DX: I25.10 Atherosclerotic heart disease of native coronary artery without angina pectoris (principal); E78.5 Hyperlipidemia, unspecified
CPT/HCPCS: 75571

== ENCOUNTER → 2024-09-05 | Outpatient (CLI) | payer BC ==
--- NOTE | 2024-09-05 11:31 | CA ---
Stress Echo Report Elsie Ashley Age: 64 Gender: F : 1960 Exam Date: 09/05/2024 09:28 Exam Location: [facility] Ht (in): 63 Wt (lb): 160 Ordering Physician: Annelise Dietrich DO Referring Physician: HUA, Mangle Feeder: SLICK Technologist Procedure CPT: Indication: E78.2 HYPERLIPIDEMIA ICD-9 Codes: Rhythm: Patient History: Hypertension and Hyperlipidemia Cardiac Medications: Medications in past 24 hours: Contrast: Stress Results Protocol: Liu Total dose(mL): Exercise Duration (min:sec): 9:[address] Depression (mm): Angina Score: Wilson Score: METS: 10.3 Resting HR: 82 Resting BP: 155 / 81 Peak HR: 149 Peak BP: 202 / 105 Max Predicted HR: 158 94 % Max Predicted HR Target HR: 134 Double Product: [id number] Stress Summary: BP Response: Reason for Termination: Reached target heart rate or work-load Cardiac Symptoms: ECG Analysis Resting ECG: Stress ECG: Arrhythmia: Echo Analysis Resting Echo: Peak Echo Analysis: MEASUREMENTS (Male/Female) Normal Values CONCLUSIONS Excellent exercise tolerance Normal electrocardiogram and echocardiogram in response to exercise Dr. Ramirez Reed MD (Electronically Signed) Final Date: 05 September 2024 11:30
== END | disposition home or self-care (01) ==
LOC: RADNMMAIN 08:51
PROVIDERS: ATTEND Family Medicine
DX: E78.2 Mixed hyperlipidemia (principal); I10 Essential (primary) hypertension
CPT/HCPCS: 93351